=== PATIENT | male | born 1955 | race Caucasian/White ===

== ENCOUNTER → 2017-07-10 | Outpatient (CLI) | payer BC ==
[~2017-07-10] MED LIST: ACYCLOVIR800 MG PO; FLEXERIL10 MG PO; GLUCOPHAGE1000 MG PO; GLYBURIDE2.5 MG PO; OMEPRAZOLE40 M1 PO; PREDNISONE10 M1 PO; PREDNISONE10 MG PO; TORADOL10 MG PO; [UNRECOGNIZED DRUG - OTHER] BOTH EYES
== END | disposition home or self-care (01) ==
LOC: CDC 08:24
DX: Z01.810 Encounter for preprocedural cardiovascular examination (principal); Z12.11 Encounter for screening for malignant neoplasm of colon
CPT/HCPCS: 93000